=== PATIENT | female | born 1960 | race Caucasian/White ===

== ENCOUNTER → 2023-04-22 08:03 | Outpatient (REF) | payer OTHER, SELFPAY | LOC: MRI 08:03 | PROVIDERS: ATTENDING PHYSICIAN Pain Medicine Pain Medicine; FAMILY PHYSICIAN Internal Medicine | DX: M54.16 Radiculopathy, lumbar region (principal) | CPT/HCPCS: 72148 ==

== ENCOUNTER 2023-08-23 15:43 | Emergency (ER) | payer SELFPAY ==
[2023-08-23 16:06] VITALS: BP 178/99
--- NOTE | 2023-08-23 18:26 | ED.GENMED ---
History of Present Illness
General
Chief Complaint: Fall
Time Seen by Provider: 08/23/23 17:16
Travel History
Have you had any contact with someone who has COVID-19?: No
Do you have any symptoms of coronavirus? Fever > 100 degrees, chills, cough, shortness of breath, sore throat, loss of taste or smell, muscle aches, or headache?: No
History of Present Illness
History of Present Illness:
Patient is a 63-year-old female with past medical history of asthma, hypertension, history of left bundle branch block, diverticulosis, diabetes, thyroid dysfunction, anxiety, history of sigmoid resection/colostomy with reversal, and history of
hysterectomy, here today for evaluation after she sustained a mechanical fall while at work several hours prior to arrival. Patient reports tripping striking her head against a wooden door. She admits to swelling and bruising around her right eye.
She also endorses a mild headache, right shoulder pain, and right knee pain. She is not on anticoagulation. No amnesia. No visual changes. No vomiting. No numbness or tingling. No focal weakness. No pain noted elsewhere. Patient has been
able to ambulate.
Past History
Past History
ED Past Medical History: Asthma, Cancer (Uterine cancer), HTN, NIDDM, Hypothyroidism and Other (diverticulitis)
ED Past Surgical History: Bowel resection
Social History
Tobacco: Smoker
Alcohol: Occasional
Personal: Single
Living: with roommate
Review of Systems
Review of Systems
All Other Systems: ROS reviewed and negative except as documented in HPI and ROS
Phy Exam
Physical Exam
Physical Exam:
GENERAL: Alert , in no apparent distress
HEAD: There is a moderately sized right lower forehead hematoma extending into the superior and lateral aspect of the right periorbital region
EYE: pupils equal and reactive to light, extraocular movements intact, no evidence of open globe injury
NECK: Supple, no significant adenopathy.
ENT: o/p clr, mmm.
CARDIAC: Regular rate and rhythm .
LUNGS: Clear breath sounds bilaterally, no acute respiratory distress, no wheezes/rales/rhonchi
ABDOMEN: Soft, without focal tenderness, no r/g, no cvat
NEUROLOGICAL: Alert and oriented, no focal neuro deficits appreciated, normal sensation and motor, moving all extremities, cranial nerves II through XII intact throughout
SKIN: Warm and dry, skin intact.
MUSCULOSKELETAL: No edema, well perfused. Mild tenderness noted along the anterior/inferior aspect of the right knee with a mild amount of ecchymosis, pulses 2+ throughout, sensation/motor intact
PSYCH: Normal and appropriate interaction.
Course
Orders/Labs/Results
Orders:
Orders
08/23/23 16:10
CR Facial Bones Comp Min 3 Vw* Urgent
Comment:
Reason For Exam: fall
CR Humerus - Right Min 2 View* Urgent
Reason For Exam: fall
CR Knee- Right 4 Or More View* Urgent
Comment:
Reason For Exam: fall
08/23/23 17:54
CT Head W/o Iv Contrast Urgent
Comment:
Reason For Exam: head trauma
CT Orbits W/o Iv Contrast Urgent
Comment:
Reason For Exam: right side facial swelling
Vital Signs
Initial and Last Documented VS:
Initial Vital Signs
Temp Pulse Resp BP Pulse Ox
98.3 F 94 20 178/99 95
08/23/23 16:06 08/23/23 16:06 08/23/23 16:06 08/23/23 16:06 08/23/23 16:06
Last Documented Vital Signs
Temp Pulse Resp BP Pulse Ox
98.3 F 94 20 178/99 95
08/23/23 16:06 08/23/23 16:06 08/23/23 16:06 08/23/23 16:06 08/23/23 16:06
MDM/Problems Addressed
Differential Diagnosis Includes:
Patient is a 63-year-old female with past medical history of asthma, hypertension, history of left bundle branch block, diverticulosis, diabetes, thyroid dysfunction, anxiety, history of sigmoid resection/colostomy with reversal, and history of
hysterectomy, here today for evaluation after she sustained a mechanical fall. Overall, patient appears very well. Physical examination described above. X-rays were obtained per triage protocol of the facial bones, humerus, and knee. There is no
evidence of acute fracture along the facial bones but there is evidence of sinusitis along the left side. Humerus x-ray reveals moderate osteoarthritis of the AC joint and glenohumeral joint. No acute fracture. Knee x-ray reveals no acute
fracture or dislocation but there is findings of tricompartmental osteoarthritis. Given symptoms/physical exam findings, will obtain CT brain/CT orbit to assess for occult fracture.
08/23/2023 21:20: CT scan reveals right periorbital soft tissue swelling and scalp hematoma without fractures noted. Patient made aware of findings. Discussed wound/hematoma care with patient. Recommend ice, Tylenol/ibuprofen, and rest. The
patient does not appear to have any evidence of ocular trauma and she denies eye pain or visual changes. I discussed performing a fluorescein stain to assess for corneal abrasion but patient declined. Recommend supportive measures and close
follow-up with her doctor. I also discussed with the patient obtaining dedicated shoulder x-rays along the right side given shoulder discomfort, however, patient declined. Humerus x-ray does appropriately visualize the shoulder and patient has no
significant discomfort. Patient recommended to be reevaluated should symptoms persist/worsen. She voices understanding of the above plan. She appears well and stable for discharge. All questions answered.
*Critical Care Note
Total Time (30-74mins, 75-104mins- exclusive of procedures): Not Applicable
ED Attending Note
-
Portions of this chart may have been created with voice recognition software.� Occasional wrong word or��sound alike� substitutions may have occurred due to the inherent limitations of voice recognition software.
Discharge Plan
Departure
Patient Disposition: Home (Routine Discharge)
Date of Disposition: 08/23/23
Time of Disposition: 21:02
Patient with high blood pressure during this ER visit?: Yes
Condition: Fair
Covid-19: Not Applicable
Discharge Problem:
Fall, Periorbital hematoma of right eye, Traumatic hematoma of forehead, Osteoarthritis of right knee, Osteoarthritis of right shoulder
Instructions: Head Injury in Adults (DC), Contusion (DC)
Prescriptions:
No Action
albuterol sulfate 1 PUFF HFA aerosol inhaler
2 puff inhalation R Q4HPRN PRN (Reason: shortness of breath)
atorvastatin 10 MG tablet
10 mg PO DAILY
methimazole 5 mg tablet
15 mg PO DAILY
valsartan 160 mg tablet
160 mg PO DAILY
clonazepam 0.5 mg Tablet
0.5 mg PO .hs prn PRN (Reason: anxiety, leg movements) 3 Days Qty: 3 0RF
tranexamic acid [Lysteda] 650 mg tablet
1,300 mg PO TID PRN (Reason: heavy bleeding) Qty: 30 0RF
ferrous sulfate 325 mg (65 mg iron) tablet
325 mg PO DAILY 30 Days Qty: 30 0RF
Referrals:
Taina Marino MD [Family Provider] - Follow up in 5-7 days
Stand Alone Forms: Return to Work
Activity Restrictions/Additional Instructions:
You were seen today for evaluation after a fall. We obtained a CAT scan of your brain and face which revealed no evidence of broken bones.
Rest. Ice the area. Take [id number] ibuprofen and Tylenol as directed as needed for pain.
Follow-up with your doctor within the next 5-7 days for close reevaluation.
Return for any new, worsening, or concerning symptoms
Interventions
Interventions:
*Risk Screen - Suicide Last Done: 08/23/23 16:06
*General Assessment Last Done: 08/23/23 16:06
*Neglect/Abuse Screening Last Done: 08/23/23 16:06
*Nursing Disposition Last Done: 08/23/23 21:13
ED-Musculoskeletal Assessment Last Done: 08/23/23 17:35
ED- Neurological Assessment Last Done: 08/23/23 17:35
ED-Skin Assessment Last Done: 08/23/23 17:35
Discharge Date and Time
Discharge Date/Time: 08/23/23 21:13
Print Language: BANGLADESHI
== END 2023-08-23 21:13 | disposition home or self-care (01) ==
LOC: EMR 15:43
PROVIDERS: EMERGENCY PHYSICIAN Emergency Medicine; FAMILY PHYSICIAN Internal Medicine
DX: S00.11XA Contusion of right eyelid and periocular area, initial encounter (principal); S00.83XA Contusion of other part of head, initial encounter; R22.0 Localized swelling, mass and lump, head; R51.9 Headache, unspecified; M25.511 Pain in right shoulder; M25.561 Pain in right knee; M19.011 Primary osteoarthritis, right shoulder; M17.11 Unilateral primary osteoarthritis, right knee; W01.198A Fall on same level from slipping, tripping and stumbling with subsequent striking against other object, initial encounter; Y93.89 Activity, other specified; Y92.89 Other specified places as the place of occurrence of the external cause; Y99.0 Civilian activity done for income or pay; J45.909 Unspecified asthma, uncomplicated; I10 Essential (primary) hypertension; I44.7 Left bundle-branch block, unspecified; K57.90 Diverticulosis of intestine, part unspecified, without perforation or abscess without bleeding; E11.9 Type 2 diabetes mellitus without complications; E03.9 Hypothyroidism, unspecified; F17.200 Nicotine dependence, unspecified, uncomplicated; Z98.0 Intestinal bypass and anastomosis status; Z85.42 Personal history of malignant neoplasm of other parts of uterus
CPT/HCPCS: 99284; 70150; 70450; 70480; 73060; 73564

== ENCOUNTER → 2024-02-03 16:04 | Outpatient (REF) | payer OTHER, SELFPAY | LOC: HWRCS 16:04 | PROVIDERS: ATTENDING PHYSICIAN Internal Medicine Cardiovascular Disease; FAMILY PHYSICIAN Internal Medicine | DX: I44.7 Left bundle-branch block, unspecified (principal); I51.7 Cardiomegaly; I05.0 Rheumatic mitral stenosis | CPT/HCPCS: 93306 ==

== ENCOUNTER → 2024-12-08 12:49 | Outpatient (REF) | payer OTHER, SELFPAY | LOC: RCS 12:49 | PROVIDERS: ATTENDING PHYSICIAN Internal Medicine Cardiovascular Disease; FAMILY PHYSICIAN Student in an Organized Health Care Education/Training Program | DX: I50.30 Unspecified diastolic (congestive) heart failure (principal); R06.09 Other forms of dyspnea | CPT/HCPCS: 93306; Q9950 ==

== ENCOUNTER → 2024-12-14 07:51 | Outpatient (REF) | payer OTHER, SELFPAY | LOC: WOUND 07:51 | PROVIDERS: ATTENDING PHYSICIAN Surgery; FAMILY PHYSICIAN Student in an Organized Health Care Education/Training Program | DX: S41.001A Unspecified open wound of right shoulder, initial encounter (principal); E11.65 Type 2 diabetes mellitus with hyperglycemia; L02.93 Carbuncle, unspecified; I50.32 Chronic diastolic (congestive) heart failure; I34.2 Nonrheumatic mitral (valve) stenosis; X58.XXXA Exposure to other specified factors, initial encounter | CPT/HCPCS: 11042; 99203 ==

== ENCOUNTER → 2024-12-22 08:49 | Outpatient (REF) | payer OTHER, SELFPAY | LOC: WOUND 08:49 | PROVIDERS: ATTENDING PHYSICIAN Surgery; FAMILY PHYSICIAN Student in an Organized Health Care Education/Training Program | DX: S41.001A Unspecified open wound of right shoulder, initial encounter (principal); E11.65 Type 2 diabetes mellitus with hyperglycemia; L02.93 Carbuncle, unspecified; I50.32 Chronic diastolic (congestive) heart failure; Y84.8 Other medical procedures as the cause of abnormal reaction of the patient, or of later complication, without mention of misadventure at the time of the procedure; I34.2 Nonrheumatic mitral (valve) stenosis | CPT/HCPCS: 11042 ==

== ENCOUNTER → 2025-01-05 08:45 | Outpatient (REF) | payer OTHER, SELFPAY | LOC: WOUND 08:45 | PROVIDERS: ATTENDING PHYSICIAN Surgery; FAMILY PHYSICIAN Student in an Organized Health Care Education/Training Program | DX: S41.001A Unspecified open wound of right shoulder, initial encounter (principal); E11.65 Type 2 diabetes mellitus with hyperglycemia; L02.93 Carbuncle, unspecified; I50.32 Chronic diastolic (congestive) heart failure; I34.2 Nonrheumatic mitral (valve) stenosis; X58.XXXA Exposure to other specified factors, initial encounter | CPT/HCPCS: 99212 ==